=== PATIENT | male | born 1955 | race Caucasian/White ===

== ENCOUNTER 2016-12-04 16:12 | Emergency (ER) | payer OTHER ==
[~2016-12-04] VITALS: Ht 165.1 cm; Wt 64.0 kg
[~2016-12-04 16:12] MED LIST: ACET500C5 PO; D-ME473S18 PO; HYDR-3720 PO; IBUP800T25 PO; LEVO750T25 PO; METH-70 PO; OMEP40CA3 PO
[2016-12-04 16:25] VITALS: Ht 165.1 cm; Wt 64.0 kg
[2016-12-04] MEDS ORDERED: ACETAMINOPHEN 500 MG TAB PO STA (17:31)
--- NOTE | 2016-12-04 18:00 | RADRPT ---
PROCEDURE: Chest x-ray CLINICAL INDICATION: Cough TECHNIQUE: Chest single view COMPARISON: None FINDINGS: The heart is normal in size. The pulmonary vessels are normal in caliber. The lungs are clear. Th e costophrenic angles are sharp. The visualized bony thorax is unremarkable. IMPRESSION: No acute cardiopulmonary disease. RPTAT: HH .Rickey Roca MD, MD Date Time Electronically viewed and signed by .Rickey Roca MD, on 12/04/2016 18:00 .W/
[2016-12-04] MEDS ORDERED: OSLT75C PO (18:48)
[2016-12-04] MEDS ORDERED: ACET325T33 PO (18:48)
[2016-12-04 18:56] VITALS: BP 168/84; PULSE 72; RESP 20; TEMP 98.4
--- NOTE | 2016-12-04 19:24 | ERD ---
ER Documentation Chief Complaint Date/Time DATE: 12/04/16 TIME: 19:21 Chief Complaint HEADACHE , BODYACHE , FEVER , CHILLS , COUGH X 3 DAYS HPI 61-year-old male with a past medical history of diabetes presents the ED complaining of chills, frontal generalized headache, productive cough, body aches that started 3 days ago. Denies any sick contacts. States that his blood sugar today was 99. States that he has not taken any medications. Reports that he takes metformin and insulin. Denies any chest pain, shortness of breath, wheezing, abdominal pain, nausea, dyspnea on exertion, orthopnea, leg swelling, pleuritic chest pain, vomiting, diarrhea. Reports he has normal bowel movements. ROS All systems reviewed and are negative except as per history of present illness. Medications Home Meds Active Scripts Acetaminophen* (Tylenol*) 325 Mg Tablet, 1 TAB PO Q6 Y for PAIN AND OR ELEVATED TEMP, #20 TAB Prov:CHENTE WAY PA-C 12/04/16 Oseltamivir Phosphate* (Tamiflu*) 75 Mg Capsule, 75 MG PO BID for 5 Days, CAP Prov:CHENTE WAY PA-C 12/04/16 Acetaminophen* (Tylophen*) 500 Mg Capsule, 2 CAP PO Q8H Y for PAIN AND OR ELEVATED TEMP, #20 CAP Prov:TAYLOR MUSTAFA 10/21/16 Dextromethorphan Hb-Promethazine Hcl (Promethazine DM Syrup) 473 Ml Syrup, 10 ML PO Q6H Y for COUGH, #4 OZ Prov:TAYLOR MUSTAFA 10/21/16 Levofloxacin* (Levaquin*) 750 Mg Tablet, 750 MG PO DAILY for 5 Days, TAB Prov:TAYLOR MUSTAFA 10/21/16 Methocarbamol* (Robaxin*) 750 Mg Tablet, 750 MG PO TID, #14 TAB Prov:JOSH MORENO DO 06/05/16 Hydrocodone Bit-Acetaminophen* ([place]*) 7.5-325 Tablet, 1 TAB PO Q4H Y for PAIN , #20 TAB Prov:FLORI MORENOSTVIKS ARadha DO 06/05/16 Ibuprofen* (Motrin*) 800 Mg Tab, 800 MG PO Q6H Y for PAIN AND OR ELEVATED TEMP, #30 TAB Prov:JOSH MORENO DO 06/05/16 Omeprazole* (Prilosec*) 40 Mg Capsule.dr, 40 MG PO DAILY, #30 CAP Prov:JOSH MORENO DO 05/05/16 Allergies Allergies: Coded Allergies: No Known Drug Allergies (Verified Allergy, Unknown, 06/05/16) PMhx/Soc History of Surgery: Yes (Rt Femur ) Anesthesia Reaction: No Hx Neurological Disorder: No Hx Respiratory Disorders: No Hx Cardiac Disorders: No Hx Psychiatric Problems: No Hx Miscellaneous Medical Probl: Yes (DM) Hx Alcohol Use: No Hx Substance Use: No Hx Tobacco Use: No Physical Exam Vitals Vital Signs Date Time Temp Pulse Resp B/P Pulse Ox O2 Delivery O2 Flow Rate FiO2 12/04/16 18:56 98.4 72 20 168/84 99 Room Air 12/04/16 16:25 100.7 78 18 142/76 99 Physical Exam Const: [id number]-[id number], well-nourished. In no acute distress. Head: Atraumatic, normocephalic Eyes: Normal Conjunctiva without injection. No purulent discharge. PERRL. EOMI ENT: Normal external ear. Ear canal without erythema. Tympanic membrane pearly garcia without effusion or bulging. Nasal canal clear with normal turbinates. Moist oropharynx without tonsillar exudates. Non-erythematous pharynx. Uvula midline. No drooling. No trismus. Neck: Full range of motion. No meningismus. No cervical lymphadenopathy. Resp: Clear to auscultation bilaterally. No wheezing, rhonchi, rales, or crackles. No accessory muscle use. No retractions. Cardio: Regular rate and rhythm. No murmurs, rubs or gallops. Abd: Soft, non tender, non distended. Normal bowel sounds. No palpable masses. No rebound tenderness. No guarding. Skin: No petechiae or rashes Back: No midline tenderness. No CVA tenderness. Ext: No cyanosis, or edema. Neur: Awake and alert. Psych: Normal Mood and Affect Results 24 hrs Current Medications Medications (Trade) Dose Ordered Sig/Ben Route PRN Reason Start Time Stop Time Status Last Admin Dose Admin Acetaminophen (Tylenol Tab) 500 mg ONCE STAT PO 12/04/16 17:31 12/04/16 17:38 DC 12/04/16 18:09 Procedures/[facility] This is a 61-year-old male with a past medical history of diabetes presents the ED complaining of headache, body aches, fever, chills, productive cough. Patient currently has a low-grade fever 100.7. Tylenol was ordered to further downtrend patient's temperature. A chest x-ray was ordered to further evaluate patient. PROCEDURE: Chest x-ray CLINICAL INDICATION: Cough TECHNIQUE: Chest single view COMPARISON: None FINDINGS: The heart is normal in size. The pulmonary vessels are normal in caliber. The lungs are clear. The costophrenic angles are sharp. The visualized bony thorax is unremarkable. IMPRESSION: No acute cardiopulmonary disease. This patient presents to the ED with symptoms consistent with influenza like symptoms. Patient is afebrile and has normal vital signs. Patient's physical exam include lungs which were clear to auscultation and a normal pulse oximetry. There is a low suspicion for pneumonia, pneumothorax, pulmonary embolism, epiglottitis, otitis media, otitis externa, viral/strep pharyngitis, sinusitis, peritonsillar abscess, mastoiditis, retropharyngeal abscess, meningitis, sepsis, acute abdomen or other emergent conditions. Fluids, rest, and symptomatic treatment are recommended for the management of patient's symptoms. Since patient is diabetic, patient is appropriate candidate for Tamiflu. Discharge medications: Tamiflu, Tylenol Patient was instructed to return to the ED for any new or worsening symptoms. They should otherwise follow up with the primary care provider within 1-2 days. The patient's questions were answered at the time of discharge. Patient understood and agreed with discharge management. Departure Diagnosis: Primary Impression: Influenza-like symptoms Condition: Stable Patient Instructions: Influenza (Adult) Referrals: COMMUNITY CLINICS YOU HAVE RECEIVED A MEDICAL SCREENING EXAM AND THE RESULTS INDICATE THAT YOU DO NOT HAVE A CONDITION THAT REQUIRES URGENT TREATMENT IN THE EMERGENCY DEPARTMENT. FURTHER EVALUATION AND TREATMENT OF YOUR CONDITION CAN WAIT UNTIL YOU ARE SEEN IN YOUR DOCTORS OFFICE WITHIN THE NEXT 1-2 DAYS. IT IS YOUR RESPONSIBILITY TO MAKE AN APPOINTMENT FOR FOLOW-UP CARE. IF YOU HAVE A PRIMARY DOCTOR --you should call your primary doctor and schedule an appointment IF YOU DO NOT HAVE A PRIMARY DOCTOR YOU CAN CALL OUR PHYSICIAN REFERRAL HOTLINE AT IF YOU CAN NOT AFFORD TO SEE A PHYSICIAN YOU CAN CHOSE FROM THE FOLLOWING [facility] CLINICS [facility] [address] [place] [facility] [address] [place] [address] [facility] [address] [facility] [address] [facility] [address] [facility]. [address] [facility]. [facility] YOU HAVE RECEIVED A MEDICAL SCREENING EXAM AND THE RESULTS INDICATE THAT YOU DO NOT HAVE A CONDITION THAT REQUIRES URGENT TREATMENT IN THE EMERGENCY DEPARTMENT. FURTHER EVALUATION AND TREATMENT OF YOUR CONDITION CAN WAIT UNTIL YOU ARE SEEN IN YOUR DOCTORS OFFICE WITHIN THE NEXT 1-2 DAYS. IT IS YOUR RESPONSIBILITY TO MAKE AN APPOINTMENT FOR FOLOW-UP CARE. IF YOU HAVE A PRIMARY DOCTOR --you should call your primary doctor and schedule and appointment IF YOU DO NOT HAVE A PRIMARY DOCTOR YOU CAN CALL OUR PHYSICIAN REFERRAL HOTLINE AT . IF YOU CAN NOT AFFORD TO SEE A PHYSICIAN YOU CAN CHOSE FROM THE FOLLOWING PSYCHIATRIC HOSPITAL INSTITUTIONS: [facility] [address] [place] [address] [facility] [address] [place] [address] [facility] [address] [place] [address] [facility] URGENT CARE/SPECIALTIES Additional Instructions: Visite a jimenes winnie hunt para un EXAMEN.Regrese a estas instalaciones si no se mejora elia esperbamos o elia le garfieldmos. CHENTE WAY PA-C Dec 04, 2016 19:24
== END 2016-12-04 18:58 | disposition home or self-care (01) ==
LOC: FTE 16:12
DX: R51 Headache (principal); R05 Cough; R50.9 Fever, unspecified; E11.9 Type 2 diabetes mellitus without complications; Z79.4 Long term (current) use of insulin; Z79.84 Long term (current) use of oral hypoglycemic drugs
CPT/HCPCS: 71010; Z7502; Z7610

== ENCOUNTER 2017-01-12 19:29 | Emergency (ER) | payer OTHER ==
[~2017-01-12] VITALS: Ht 165.1 cm; Wt 63.3 kg
[~2017-01-12 19:29] MED LIST changes: +ACET325T33 PO; +OSLT75C PO
[2017-01-12 19:46] VITALS: Ht 165.1 cm; Wt 63.3 kg
[2017-01-12] MEDS ORDERED: CETI10CA PO (20:09)
[2017-01-12] MEDS ORDERED: POLY10DR19 BOTH EYES (20:09)
[2017-01-12] MEDS ORDERED: GUAI120S26 PO (20:09)
[2017-01-12] MEDS ORDERED: AZIT250T94 PO (20:09)
[2017-01-12] MEDS ORDERED: ACET500C5 PO (20:09)
[2017-01-12] MEDS ORDERED: GLIP5TAB13 PO (20:14)
--- NOTE | 2017-01-12 20:16 | ERD ---
ER Documentation Chief Complaint Date/Time DATE: 01/12/17 TIME: 20:13 Chief Complaint Eye drainge and cough for 5 days HPI 61-year-old male presents here in emergency department for complaints of cough for 5 days. Patient has been having dry cough, does not cough up any phlegm or blood. Patient does not have any shortness breath or wheezing. Patient has been having runny nose, nasal congestion with clear nasal discharge. Patient is having chills but does not have any fever. Patient denies any chest or palpitations. Patient denies any dizziness. Patient is also complaining of bilateral eye redness and discharge started this morning. Patient's complaining of itching both eyes. Patient denies any vision changes. Patient denies any trauma in the eye. Patient did not take any medications to help with symptoms. ROS All systems reviewed and are negative except as per history of present illness. Medications Home Meds Active Scripts Polymyxin B Sulfate-TMP* (Polymyxin B-TMP Eye Drops*) 10 Ml Drops, 1 DROP BOTH EYES QID for 7 Days, EA Prov:SEE HERNANDEZ NP 01/12/17 Acetaminophen* (Tylophen*) 500 Mg Capsule, 1 CAP PO Q6H Y for PAIN AND OR ELEVATED TEMP, #20 CAP Prov:SEE HERNANDEZ NP 01/12/17 Cetirizine Hcl* (Zyrtec*) 10 Mg Capsule, 10 MG PO DAILY, #30 TAB.CHEW Prov:SEE HERNANDEZ NP 01/12/17 Zadgartdbdd-P-Ijmfkbdmqs Hb* (Guaifenesin* DM Syrup) 120 Ml Syrup, 10 ML PO Q4H Y for COUGH, #120 ML Prov:SEE HERNANDEZ NP 01/12/17 Azithromycin* (Zithromax*) 250 Mg Tablet, 250 MG PO .AMADOU DIRECTED, #6 TAB TAKE 500 MG (2 TABS) THE FIRST DAY THEN 250 MG (1 TAB) DAYS 2-5 Prov:SEE HERNANDEZ NP 01/12/17 Acetaminophen* (Tylenol*) 325 Mg Tablet, 1 TAB PO Q6 Y for PAIN AND OR ELEVATED TEMP, #20 TAB Prov:CHENTE WAY PA-C 12/04/16 Oseltamivir Phosphate* (Tamiflu*) 75 Mg Capsule, 75 MG PO BID for 5 Days, CAP Prov:CHENTE WAY PA-C 12/04/16 Acetaminophen* (Tylophen*) 500 Mg Capsule, 2 CAP PO Q8H Y for PAIN AND OR ELEVATED TEMP, #20 CAP Prov:TAYLOR MUSTAFA C 10/21/16 Dextromethorphan Hb-Promethazine Hcl (Promethazine DM Syrup) 473 Ml Syrup, 10 ML PO Q6H Y for COUGH, #4 OZ Prov:TAYLOR MUSTAFA C 10/21/16 Levofloxacin* (Levaquin*) 750 Mg Tablet, 750 MG PO DAILY for 5 Days, TAB Prov:TAYLOR MUSTAFA C 10/21/16 Methocarbamol* (Robaxin*) 750 Mg Tablet, 750 MG PO TID, #14 TAB Prov:FLORI MORENOSTOLOS A. DO 06/05/16 Hydrocodone Bit-Acetaminophen* ([place]*) 7.5-325 Tablet, 1 TAB PO Q4H Y for PAIN , #20 TAB Prov:LECHIKIOSFLORISTOLOS A. DO 06/05/16 Ibuprofen* (Motrin*) 800 Mg Tab, 800 MG PO Q6H Y for PAIN AND OR ELEVATED TEMP, #30 TAB Prov:SABRINAOSFLORISTOLOS A. DO 06/05/16 Omeprazole* (Prilosec*) 40 Mg Capsule.dr, 40 MG PO DAILY, #30 CAP Prov:LEKKOSFLORISTOLOS A. DO 05/05/16 Reported Medications Glipizide* (Glipizide*) Unknown Strength Tablet, PO AC BREAKFAST, TAB 01/12/17 Allergies Allergies: Coded Allergies: No Known Drug Allergies (Verified Allergy, Unknown, 06/05/16) PMhx/Soc History of Surgery: Yes (Rt Femur ) Anesthesia Reaction: No Hx Neurological Disorder: No Hx Respiratory Disorders: No Hx Cardiac Disorders: No Hx Psychiatric Problems: No Hx Miscellaneous Medical Probl: Yes (DM) Hx Alcohol Use: No Hx Substance Use: No Hx Tobacco Use: No FmHx Family History: No coronary disease, No diabetes, No other Physical Exam Vitals Vital Signs Date Time Temp Pulse Resp B/P Pulse Ox O2 Delivery O2 Flow Rate FiO2 01/12/17 19:46 98.3 84 18 182/95 100 Physical Exam GENERAL: The patient is well developed and appropriate for usual state of health, in no apparent distress. HEENT: Atraumatic. Bilateral eye conjunctivae are noted to be erythematous with greenish discharge from both eyes, bilateral eyes are PERRL EOM intact. No tearing noted. No eyelid swelling noted. Ears: Normal tympanic membrane, no erythema or bulging. No ear canal swelling. No ear discharge. Nose: Erythematous nasal turbinates with clear nasal discharge. Throat: oropharynx erythematous with postnasal drip. No tonsillar swelling or tonsillar exudates. No lymphadenopathy. CHEST: Clear to auscultation bilaterally. There are no rales, wheezes or rhonchi. HEART: Regular rate and rhythm. No murmurs, clicks, rubs or gallops. No S3 or S4. ABDOMEN: Soft, nontender and nondistended. Good bowel sounds. No rebound or guarding. No gross peritonitis. No gross organomegaly or masses. No Qureshi sign or McBurney point tenderness. BACK: No midline or flank tenderness. EXTREMITIES: Equal pulses bilaterally. There is no peripheral clubbing, cyanosis or edema. No focal swelling or erythema. Full range of motion. Grossly neurovascularly intact. NEURO: Alert and oriented. Cranial nerves 2-12 intact. Motor strength in all 4 extremities with 5/5 strength. Sensation grossly intact. Normal speech and gait. SKIN: There is no apparent rash or petechia. The skin is warm and dry. HEMATOLOGIC AND LYMPHATIC: There is no evidence of excessive bruising or lymphedema. No gross cervical, axillary, or inguinal lymphadenopathy. Procedures/MDM Medical Decision Making: Patient symptoms are most likely consistent with acute bronchitis, can be viral, can be also possible atypical infection, considering patient is diabetic, high risk, patient will be treated with antibiotics, azithromycin. There is low suspicion for Pneumonia at this time since patients lungs sounds are clear, patient O2 saturation is normal and patient doesnt show any respiratory distress. Radiology exam is not indicated at this time. There is low suspicion for other cardiopulmonary emergencies at this time such as CHF, Pulmonary Embolism, Pneumothorax, Aortic Aneurysm or any other cardiopulmonary emergencies at this time. There is low suspicion for sepsis. Patient appears well and is hemodynamically stable. Patient does not have any fever. Patient's bilateral eye redness consistent with bacterial conjunctivitis, no suspicion for retinal detachment, Glaucoma, Patient Does Not Have Any Eye Pain, Did Not Have Any Trauma in the Eye, No Symptoms of Herpes Simplex Virus. Disposition: Home. Condition: Stable Prescriptions: Polytrim eyedrops, azithromycin, Zyrtec, guaifenesin DM, Tylenol Instructions: Patient is advised to take medications as prescribed. Patient is advised to rest. Patient advised to increase fluid intake, do humidifier at home and if possible, do salt water gargles. Patient is advised that if symptoms are worse, shortness of breath, uncontrolled fever, stridor, vomiting, worst signs and symptoms to return to emergency department immediately. Otherwise, patient is advised to follow up with primary doctor in 5-7 days. Departure Diagnosis: Primary Impression: Acute bacterial conjunctivitis of both eyes Additional Impression: Acute bronchitis Bronchitis organism: unspecified organism Qualified Code: J20.9 - Acute bronchitis, unspecified organism Condition: Stable Patient Instructions: Bronchitis, Antiobiotic Treatment (Adult), Conjunctivitis , Antibiotic [Child] SEE HERNANDEZ NP Jan 12, 2017 20:16
== END 2017-01-12 20:12 | disposition home or self-care (01) ==
LOC: E/R 19:29
DX: H10.33 Unspecified acute conjunctivitis, bilateral (principal); E11.9 Type 2 diabetes mellitus without complications; J20.9 Acute bronchitis, unspecified; Z79.84 Long term (current) use of oral hypoglycemic drugs
CPT/HCPCS: 99283

== ENCOUNTER 2017-07-13 08:00 | Emergency (ER) | payer OTHER ==
[~2017-07-13] VITALS: Ht 152.4 cm; Wt 64.5 kg
[~2017-07-13 08:00] MED LIST changes: +AZIT250T94 PO; +CETI10CA PO; +GLIP5TAB13 PO; +GUAI120S26 PO; -METH-70 PO; +METH750T93 PO; +POLY10DR19 BOTH EYES
[2017-07-13 08:06] VITALS: Ht 152.4 cm; Wt 64.5 kg
[2017-07-13] MEDS ORDERED: KETOROLAC 30 MG INJ IM STA (08:27)
[2017-07-13] MEDS ORDERED: HYDROCODONE/APAP (5/325) TAB PO ONE (08:30)
--- NOTE | 2017-07-13 08:38 | ERD ---
ER Documentation Chief Complaint Date/Time DATE: 07/13/17 TIME: 08:33 Chief Complaint Complains of back pain x 3 days HPI Patient is a 61-year-old male who presents with left-sided lower back pain as well as left foot pain that he has had since last night. He denies any trauma. He states the pain in his foot hurts more than his back and that is what brought him in to the emergency room today as he was unable to sleep last night secondary to the pain. He denies any trauma. Denies any numbness or tingling. He has not taken any medication for pain. He is ambulatory. He denies any fever. Denies any nausea or vomiting or diarrhea. Denies any chest pain or shortness of breath. Denies any abdominal pain. Denies any bowel or bladder incontinence. Denies any dysuria hematuria or increased urinary frequency. ROS All systems reviewed and are negative except as per history of present illness. Medications Home Meds Active Scripts Hydrocodone/Acetaminophen (Evans 5-325 Tablet) 1 Each Tablet, 1 TAB PO Q6H Y for PAIN, #15 TAB Prov:GRETA CHARLES PA-C 07/13/17 Ibuprofen* (Motrin*) 600 Mg Tab, 600 MG PO Q6, #30 TAB Prov:GRETA CHARLES PA-C 07/13/17 Polymyxin B Sulfate-TMP* (Polymyxin B-TMP Eye Drops*) 10 Ml Drops, 1 DROP BOTH EYES QID for 7 Days, EA Prov:SEE HERNANDEZ NP 01/12/17 Acetaminophen* (Tylophen*) 500 Mg Capsule, 1 CAP PO Q6H Y for PAIN AND OR ELEVATED TEMP, #20 CAP Prov:SEE HERNANDEZ NP 01/12/17 Cetirizine Hcl* (Zyrtec*) 10 Mg Capsule, 10 MG PO DAILY, #30 TAB.CHEW Prov:SEE HERNANDEZ NP 01/12/17 Rbcxqhklaqw-S-Uvpevaphud Hb* (Guaifenesin* DM Syrup) 120 Ml Syrup, 10 ML PO Q4H Y for COUGH, #120 ML Prov:SEE HERNANDEZ NP 01/12/17 Azithromycin* (Zithromax*) 250 Mg Tablet, 250 MG PO .ZPACK DIRECTED, #6 TAB TAKE 500 MG (2 TABS) THE FIRST DAY THEN 250 MG (1 TAB) DAYS 2-5 Prov:SEE HERNANDEZ NP 01/12/17 Acetaminophen* (Tylenol*) 325 Mg Tablet, 1 TAB PO Q6 Y for PAIN AND OR ELEVATED TEMP, #20 TAB Prov:CHENTE WAY PA-C 12/04/16 Oseltamivir Phosphate* (Tamiflu*) 75 Mg Capsule, 75 MG PO BID for 5 Days, CAP Prov:CHENTE WAY PA-C 12/04/16 Acetaminophen* (Tylophen*) 500 Mg Capsule, 2 CAP PO Q8H Y for PAIN AND OR ELEVATED TEMP, #20 CAP Prov:TAYLOR MUSTAFA 10/21/16 Dextromethorphan Hb-Promethazine Hcl (Promethazine DM Syrup) 473 Ml Syrup, 10 ML PO Q6H Y for COUGH, #4 OZ Prov:TAYLOR MUSTAFA 10/21/16 Levofloxacin* (Levaquin*) 750 Mg Tablet, 750 MG PO DAILY for 5 Days, TAB Prov:TAYLOR MUSTAFA 10/21/16 Methocarbamol* (Robaxin*) 750 Mg Tablet, 750 MG PO TID, #14 TAB Prov:JOSH MORENO DO 06/05/16 Hydrocodone Bit-Acetaminophen* (Evans*) 7.5-325 Tablet, 1 TAB PO Q4H Y for PAIN , #20 TAB Prov:FLORI MORENOSTBUSHRA Bob DO 06/05/16 Ibuprofen* (Motrin*) 800 Mg Tab, 800 MG PO Q6H Y for PAIN AND OR ELEVATED TEMP, #30 TAB Prov:FLORI MORENOSTVIKS Lisbeth DO 06/05/16 Omeprazole* (Prilosec*) 40 Mg Capsule.dr, 40 MG PO DAILY, #30 CAP Prov:FLORI MORENOSTVIKS Lisbeth DO 05/05/16 Reported Medications Glipizide* (Glipizide*) Unknown Strength Tablet, PO AC BREAKFAST, TAB 01/12/17 Allergies Allergies: Coded Allergies: No Known Drug Allergies (Verified Allergy, Unknown, 07/13/17) PMhx/Soc History of Surgery: Yes (Rt Femur ) Anesthesia Reaction: No Hx Neurological Disorder: No Hx Respiratory Disorders: No Hx Cardiac Disorders: No Hx Psychiatric Problems: No Hx Miscellaneous Medical Probl: Yes (DM) Hx Alcohol Use: No Hx Substance Use: No Hx Tobacco Use: No Smoking Status: Never smoker FmHx Family History: diabetes Physical Exam Vitals Vital Signs Date Time Temp Pulse Resp B/P Pulse Ox O2 Delivery O2 Flow Rate FiO2 07/13/17 08:06 98.5 80 20 170/80 100 Physical Exam INITIAL VITAL SIGNS: Reviewed by me GENERAL: Awake, alert and oriented x 4, well appearing, nontoxic, speaking in full sentences. No acute distress HEAD: Atraumatic EYES: EOMI. PERRL. NECK: Supple. No masses. Full range of motion. No meningismus. No midline tenderness. RESPIRATORY: Clear to auscultation bilaterally. Symmetric chest wall rise. No wheezing or rales. No accessory muscle use. CV: Regular rate and rhythm. No murmurs, rubs, or gallops. ABDOMEN: Soft, non-distended. Nontender. Negative [place]. Negative McBurneys point tenderness. No CVA tenderness bilaterally. No guarding. No rebound. EXTREMITIES: No clubbing or cyanosis. No edema. Moving all extremities normally. Left foot: No erythema, no edema, sensation to light touch intact, capillary refill less than 2 seconds, no bony abnormalities, pedal pulse 2+ BACK: No midline tenderness to palpation. No step-offs. SKIN: Warm and dry. No rash or petechiae. NEUROLOGIC: Normal mental status and speech. Face is symmetric. Moves all extremities equally. Motor and sensory distally intact. Normal coordination. Ambulates with a strong steady gait. Results 24 hrs Current Medications Medications (Trade) Dose Ordered Sig/Ben Route PRN Reason Start Time Stop Time Status Last Admin Dose Admin Ketorolac Tromethamine (Toradol) 30 mg ONCE STAT IM 07/13/17 08:27 07/13/17 08:28 DC 07/13/17 08:35 Acetaminophen/ Hydrocodone Bitart (Evans (5/325)) 1 tab ONCE ONCE PO 07/13/17 08:30 07/13/17 08:31 DC 07/13/17 08:36 Procedures/MDM 61-year-old male presents with foot and back pain. He is ambulatory neurovascular intact. There is no trauma. No evidence of infection or cellulitis. Exam is normal. This could be early gout versus musculoskeletal. The differential diagnosis includes but is not limited to muscle strain, ligament strain, contusion, arthritis, discogenetic disease, non-musculoskeletal , cauda equina syndrome, cord compression, abscess and others. He has not tried any medications for his symptoms at home, so conservative treatment with antiinflamatorries and pain meds will be initiated first with recommeendation of close primary care follow up. He was given Toradol and Evans here in the emergency room and discharged with Motrin with small amount of Evans. Patient counseled regarding my diagnostic impression and care plan. Prior to discharge all questions answered. Pt agrees with treatment plan and understands strict return precautions. Pt is instructed to follow up with primary care provider within 24-48 hours. Precautionary instructions provided including instructions to return to the ER if not improving or for any worsening or changing symptoms or concerns. Departure Diagnosis: Primary Impression: Back pain Additional Impression: Foot pain Condition: Stable GRETA CHARLES PA-C Jul 13, 2017 08:38
[2017-07-13] MEDS ORDERED: IBUP-1542 PO (08:39)
[2017-07-13] MEDS ORDERED: HYDR-906 PO (08:39)
== END 2017-07-13 08:55 | disposition home or self-care (01) ==
LOC: FTE 08:00
DX: M54.5 Low back pain (principal); M79.672 Pain in left foot; E11.9 Type 2 diabetes mellitus without complications; Z79.84 Long term (current) use of oral hypoglycemic drugs
CPT/HCPCS: 96372; J1885; Z7502; Z7610

== ENCOUNTER 2018-12-13 18:13 | Emergency (ER) | payer OTHER ==
[~2018-12-13] VITALS: Ht 157.5 cm; Wt 70.7 kg
[~2018-12-13 18:13] MED LIST changes: +AZIT250T PO; -AZIT250T94 PO; +HYDR-4011 PO; +IBUP-1542 PO; -IBUP800T25 PO; +IBUP800T48 PO; +OSEL75CA23 PO; -OSLT75C PO
[2018-12-13 18:23] VITALS: Ht 157.5 cm; Wt 70.7 kg
--- NOTE | 2018-12-13 19:08 | ERD ---
ER Documentation Chief Complaint Chief Complaint on/off foot/leg pain and swelling; able to ambulate w/o difficulty HPI 63-year-old male with history of hypertension, presents the emergency department, complaining of 2 days with bilateral lower extremity nontender edema, erythema and warmth. The patient denies chest pain, no shortness of breath, no palpitations, no history of CHF. The patient also denies fevers, no chills. No medications taken at this time. ROS All systems reviewed and are negative except as per history of present illness. Medications Home Meds Active Scripts Cephalexin* (Keflex*) 500 Mg Capsule, 500 MG PO QID for 7 Days, CAP Prov:ZAIDA AGUILAR MD 12/13/18 Prednisone* (Prednisone*) 20 Mg Tab, 40 MG PO DAILY for 4 Days, TAB Prov:ZAIDA AGUILAR MD 12/13/18 Hydrocodone/Acetaminophen ([place] 5-325 Tablet) 1 Each Tablet, 1 TAB PO Q6H PRN for PAIN, #15 TAB Prov:GRETA CHARLES PA-C 07/13/17 Ibuprofen* (Motrin*) 600 Mg Tab, 600 MG PO Q6, #30 TAB Prov:GRETA CHARLES PA-C 07/13/17 Polymyxin B Sulfate-TMP* (Polymyxin B-TMP Eye Drops*) 10 Ml Drops, 1 DROP BOTH EYES QID for 7 Days, EA Prov:SEE HERNANDEZ NP 01/12/17 Acetaminophen* (Tylophen*) 500 Mg Capsule, 1 CAP PO Q6H PRN for PAIN AND OR ELEVATED TEMP, #20 CAP Prov:SEE HERNANDEZ NP 01/12/17 Cetirizine Hcl* (Zyrtec*) 10 Mg Capsule, 10 MG PO DAILY, #30 TAB.CHEW Prov:SEE HERNANDEZ NP 01/12/17 Iglyfqcnzzk-P-Spudygbixl Hb* (Guaifenesin* DM Syrup) 120 Ml Syrup, 10 ML PO Q4H PRN for COUGH, #120 ML Prov:SEE HERNANDEZ NP 01/12/17 Azithromycin* (Zithromax*) 250 Mg Tablet, 250 MG PO .RegisPACK DIRECTED, #6 TAB TAKE 500 MG (2 TABS) THE FIRST DAY THEN 250 MG (1 TAB) DAYS 2-5 Prov:SEE HERNANDEZ NP 01/12/17 Acetaminophen* (Tylenol*) 325 Mg Tablet, 1 TAB PO Q6 PRN for PAIN AND OR ELEVATED TEMP, #20 TAB Prov:CHENTE WAY PA-C 12/04/16 Oseltamivir Phosphate* (Tamiflu*) 75 Mg Capsule, 75 MG PO BID for 5 Days, CAP Prov:CHENTE WAY PA-C 12/04/16 Acetaminophen* (Tylophen*) 500 Mg Capsule, 2 CAP PO Q8H PRN for PAIN AND OR ELEVATED TEMP, #20 CAP Prov:TAYLOR MUSTAFA 10/21/16 Dextromethorphan Hb-Promethazine Hcl (Promethazine DM Syrup) 473 Ml Syrup, 10 ML PO Q6H PRN for COUGH, #4 OZ Prov:TAYLOR MUSTAFA 10/21/16 Levofloxacin* (Levaquin*) 750 Mg Tablet, 750 MG PO DAILY for 5 Days, TAB Prov:TAYLOR MUSTAFA 10/21/16 Methocarbamol* (Robaxin*) 750 Mg Tablet, 750 MG PO TID, #14 TAB Prov:FLORI MORENOSTBUSHRA Bob DO 06/05/16 Hydrocodone Bit-Acetaminophen* ([place]*) 7.5-325 Tablet, 1 TAB PO Q4H PRN for PAIN, #20 TAB Prov:FLORI MORENOSTVIKS ARadha DO 06/05/16 Ibuprofen* (Motrin*) 800 Mg Tab, 800 MG PO Q6H PRN for PAIN AND OR ELEVATED TEMP, #30 TAB Prov:FLORI MORENOSTOLOS A. DO 06/05/16 Omeprazole* (Prilosec*) 40 Mg Capsule.dr, 40 MG PO DAILY, #30 CAP Prov:FLORI MORENOSTOLOS ARadha DO 05/05/16 Reported Medications Glipizide* (Glipizide*) Unknown Strength Tablet, PO AC BREAKFAST, TAB 01/12/17 Allergies Allergies: Coded Allergies: No Known Drug Allergies (Verified Allergy, Unknown, 12/13/18) PMhx/Soc History of Surgery: Yes (Rt Femur ) Anesthesia Reaction: No Hx Neurological Disorder: No Hx Respiratory Disorders: No Hx Cardiac Disorders: No Hx Psychiatric Problems: No Hx Miscellaneous Medical Probl: Yes (DM) Hx Alcohol Use: No Hx Substance Use: No Hx Tobacco Use: No FmHx Family History: diabetes Physical Exam Vitals Vital Signs Date Temp Pulse Resp B/P (MAP) Pulse Ox O2 O2 Flow FiO2 Time Delivery Rate 12/13/18 97.3 80 19 132/62 98 18:23 (85) Physical Exam Const: No acute distress Head: Atraumatic Eyes: Normal Conjunctiva ENT: Normal External Ears, Nose and Mouth. Neck: Full range of motion. No meningismus. Resp: Clear to auscultation bilaterally Cardio: Regular rate and rhythm, no murmurs Abd: Soft, non tender, non distended. Normal bowel sounds Skin: No petechiae or rashes Back: No midline or flank tenderness Ext: Bilateral lower extremities with nonpitting edema below the knee, with erythema and warmth to palpation. 2+Bilateral pedal pulses. Distal neurovascular exam intact. Bilateral severe onychomycosis. Neur: Awake and alert Psych: Normal Mood and Affect Results 24 hrs DIAGNOSTIC IMAGING REPORT Patient: LALIT GRAHAM : 1955 Age: 63 Sex: M MR #: [id number] DOS: 12/13/181910 Ordering MD: ZAIDA AGUILAR MD Location: [facility] Room/Bed: PROCEDURE: Ultrasound examination of bilateral lower extremities veins with Doppler. CLINICAL INDICATION: Leg pain and swelling. TECHNIQUE: Multiple sonographic images of bilateral lower extremity venous systems were performed with garcia scale and color Doppler. COMPARISON: None. FINDINGS: Bilateral common femoral, superficial femoral and popliteal veins demonstrate normal color flow, waveforms, compression and response to augmentation. There is no evidence of deep venous thrombosis. IMPRESSION: No evidence of deep venous thrombosis within bilateral lower extremities. .Jonathan Avina MD, Date Time Electronically viewed and signed by .Jonathan Avina MD, on 12/13/2018 20:28 .T/ CC: ZAIDA AGUILAR MD [phone] Procedures/MDM Acute bilateral leg edema, vital signs stable.Differential diagnosis include but not limited to: Musculoskeletal injury, arthritis, cellulitis, lymphangitis, DVT; low suspicion for acute limb ischemia, septic arthritis, necrotizing fasciitis, compartment syndrome. Neurovascular exam grossly intact. no clinical findings suggestive of acute systemic infectious process, no acute deformity. Pertinent Data: Bilateral venous Doppler: negative for DVT. Physical examination and clinical presentation consistent most likely with venous stasis with mild lymphangitis. Results and clinical impression discussed with the patient who agrees with management. The patient is stable to be treated outpatient and will be discharged home with recommendations for steroids, cephalexin, rest, elevation and close monitoring. The patient was instructed to follow up with the primary care provider in the next 48h. If symptoms persist, worsen or new symptoms develop, then patient should return to the ED immediately. Instructions explained and given to patient with acknowledgment and demonstrated understanding. Disclaimer: Inadvertent spelling and grammatical errors are likely due to EHR/dictation software use and do not reflect on the overall quality of patient care. Also, please note that the electronic time recorded on this note does not necessarily reflect the actual time of the patient encounter. Departure Diagnosis: Primary Impression: Stasis dermatitis of both legs Condition: Stable Additional Instructions: Muchas melissa por [facility] para jimenes servicio. Esperamos que en jimenes visita a la eugenie de emergencia jimenes problema medico haya sido solucionado y que se sienta mucho mejor. Para estar seguros que jimenes mejoria sigue en proceso, le pedimos el favor de hacer baltazar rodri de seguimiento medico con jimenes doctor primario en los proximos 2-4 gauthier. Lleve con usted estos documentos y las medicinas recetadas. Si selam sintomas empeoran, NO SE ESPERE, por favor regrese a eugenie de emergencia INMEDIATAMENTE. En darío que usted no tenga un mdico de atencin primaria: Llame al mdico o clnica comunitaria de referencia que aparece abajo javier las horas de consultorio para hacer baltazar rodri para que le vean. CLINICAS: [facility] [phone] [facility] [phone] [facility] [phone] [facility] [phone] [place] [phone] [facility]. [phone] ZAIDA OROZCO MD Dec 13, 2018 19:08
[2018-12-13] MEDS ORDERED: CEPH-443 PO (20:19)
[2018-12-13] MEDS ORDERED: PRED20TA PO (20:19)
[2018-12-13 20:42] VITALS: BP 161/73; PULSE 71; RESP 16
== END 2018-12-13 20:43 | disposition home or self-care (01) ==
LOC: FTE 18:13
DX: I87.2 Venous insufficiency (chronic) (peripheral) (principal); I10 Essential (primary) hypertension; E11.9 Type 2 diabetes mellitus without complications
CPT/HCPCS: 93970; Z7502

== ENCOUNTER 2019-01-23 14:45 | Emergency (ER) | payer OTHER ==
[~2019-01-23] VITALS: Ht 157.5 cm; Wt 67.9 kg
[~2019-01-23 14:45] MED LIST changes: +CEPH-443 PO; +PRED20TA PO
[2019-01-23 14:56] VITALS: Ht 157.5 cm; Wt 67.9 kg
--- NOTE | 2019-01-23 17:45 | ERD ---
ER Documentation Chief Complaint Chief Complaint BILAT LEG PAIN X 20 DAYS +1 EDEMA. NO RESPIRATORY DISTRESS HPI This is a 63-year-old male with a past medical history of hypertension, diabetes who is presenting with 1-2 months of persistent bilateral lower extremity edema with mild discoloration of his skin. The patient's symptoms have been ongoing since November. He was evaluated on December 13, 2018 in the emergency department where he had a negative Doppler study performed of the legs bilaterally. He is ultimately discharged in stable condition with a diagnosis of stasis dermatitis. The patient reports that his symptoms have been unchanged since then. The patient's primary concern is that his swelling could be coming from a kidney or heart issue. That said, he does not endorse any cardiac symptoms. He denies any chest pain or chest tightness. He has no shortness of breath. He is not dyspneic on exertion. He does not have worsening fatigue. He has not had episodes of diaphoresis. He does not endorse lightheadedness or dizziness. He denies any nausea or vomiting. He does not endorse any renal issues. He has no abdominal or flank pain. He has been urinating normally. The patient denies feeling sick recently. The patient denies fever or chills. The patient has had no headache or vision changes. The patient does not endorse neck or back pain. The patient denies lightheadedness or dizziness. The patient denies changes to bowel movements. The patient has had no focal deficits. The patient has had no weakness or numbness or tingling to the face or extremities. ROS All systems reviewed and are negative except as per history of present illness. Medications Home Meds Reported Medications Omeprazole* (Omeprazole*) 40 Mg Capsule.dr, 40 MG PO AC BREAKFAST BEDTIME, #30 CAP 01/23/19 Insulin Glargine,Hum.rec.anlog (Basaglar Kwikpen U-100) 100 Unit/1 Ml Insuln.pen, 25 UNITS SC DAILY, EA 01/23/19 Amlodipine Besylate* (Norvasc*) 5 Mg Tablet, 5 MG PO DAILY, TAB 01/23/19 Magnesium Oxide* (Mag-Oxide*) 400 Mg Tablet, 250 MG PO DAILY, TAB 01/23/19 Hydrochlorothiazide* (Hydrochlorothiazide*) 12.5 Mg Tablet, 12.5 MG PO DAILY, #30 TAB 01/23/19 Gabapentin* (Gabapentin*) 300 Mg Capsule, 300 MG PO QHS, #60 CAP 01/23/19 Lisinopril* (Lisinopril*) 40 Mg Tablet, 40 MG PO DAILY, #30 TAB 01/23/19 Insulin Glargine* (Lantus*) 100 Unit/Ml Soln, 30 UNIT SC QPM, #1 VIAL 01/23/19 Metformin* (Glucophage*) 1,000 Mg Tablet, 1000 MG PO BID, #60 TAB 01/23/19 Discontinued Reported Medications Glipizide* (Glipizide*) Unknown Strength Tablet, PO AC BREAKFAST, TAB 01/12/17 Discontinued Scripts Cephalexin* (Keflex*) 500 Mg Capsule, 500 MG PO QID for 7 Days, CAP Prov:ZAIDA AGUILAR MD 12/13/18 Prednisone* (Prednisone*) 20 Mg Tab, 40 MG PO DAILY for 4 Days, TAB Prov:ZAIDA AGUILAR MD 12/13/18 Hydrocodone/Acetaminophen ([place] 5-325 Tablet) 1 Each Tablet, 1 TAB PO Q6H PRN for PAIN, #15 TAB Prov:GRETA CHARLES PA-C 07/13/17 Ibuprofen* (Motrin*) 600 Mg Tab, 600 MG PO Q6, #30 TAB Prov:GRETA CHARLES PA-C 07/13/17 Polymyxin B Sulfate-TMP* (Polymyxin B-TMP Eye Drops*) 10 Ml Drops, 1 DROP BOTH EYES QID for 7 Days, EA Prov:SEE HERNANDEZ NP 01/12/17 Acetaminophen* (Tylophen*) 500 Mg Capsule, 1 CAP PO Q6H PRN for PAIN AND OR ELEVATED TEMP, #20 CAP Prov:SEE HERNANDEZ [employer] COMM[employer]ICATIONS MECHANICIAN 01/12/17 Cetirizine Hcl* (Zyrtec*) 10 Mg Capsule, 10 MG PO DAILY, #30 TAB.CHEW Prov:SEE HERNANDEZ NP 01/12/17 Tsgkzmqjfbz-C-Mdfslcfaky Hb* (Guaifenesin* DM Syrup) 120 Ml Syrup, 10 ML PO Q4H PRN for COUGH, #120 ML Prov:SEE HERNANDEZ NP 01/12/17 Azithromycin* (Zithromax*) 250 Mg Tablet, 250 MG PO .AMADOU DIRECTED, #6 TAB TAKE 500 MG (2 TABS) THE FIRST DAY THEN 250 MG (1 TAB) DAYS 2-5 Prov:SEE HERNANDEZ NP 01/12/17 Acetaminophen* (Tylenol*) 325 Mg Tablet, 1 TAB PO Q6 PRN for PAIN AND OR ELEVATED TEMP, #20 TAB Prov:CHENTE WAY PA-C 12/04/16 Oseltamivir Phosphate* (Tamiflu*) 75 Mg Capsule, 75 MG PO BID for 5 Days, CAP Prov:CHENTE WAY PA-C 12/04/16 Acetaminophen* (Tylophen*) 500 Mg Capsule, 2 CAP PO Q8H PRN for PAIN AND OR ELEVATED TEMP, #20 CAP Prov:TAYLOR MUSTAFA 10/21/16 Dextromethorphan Hb-Promethazine Hcl (Promethazine DM Syrup) 473 Ml Syrup, 10 ML PO Q6H PRN for COUGH, #4 OZ Prov:TAYLOR MUSTAFA 10/21/16 Levofloxacin* (Levaquin*) 750 Mg Tablet, 750 MG PO DAILY for 5 Days, TAB Prov:TAYLOR MUSTAFA 10/21/16 Methocarbamol* (Robaxin*) 750 Mg Tablet, 750 MG PO TID, #14 TAB Prov:JOSH MORENO DO 06/05/16 Hydrocodone Bit-Acetaminophen* ([place]*) 7.5-325 Tablet, 1 TAB PO Q4H PRN for PAIN, #20 TAB Prov:JOSH MORENO DO 06/05/16 Ibuprofen* (Motrin*) 800 Mg Tab, 800 MG PO Q6H PRN for PAIN AND OR ELEVATED TEMP, #30 TAB Prov:FLORI MORENOSTBUSHRA Bob DO 06/05/16 Omeprazole* (Prilosec*) 40 Mg Capsule.dr, 40 MG PO DAILY, #30 CAP Prov:FLORI MORENOSTOLOS ARadha DO 05/05/16 Allergies Allergies: Coded Allergies: No Known Drug Allergies (Verified Allergy, Unknown, 12/13/18) PMhx/Soc History of Surgery: Yes (Rt Femur ) Anesthesia Reaction: No Hx Neurological Disorder: No Hx Respiratory Disorders: No Hx Cardiac Disorders: Yes (htn, ) Hx Psychiatric Problems: No Hx Miscellaneous Medical Probl: Yes (DM) Hx Alcohol Use: No Hx Substance Use: No Hx Tobacco Use: No FmHx Family History: diabetes Physical Exam Vitals Vital Signs Date Temp Pulse Resp B/P (MAP) Pulse Ox O2 O2 Flow FiO2 Time Delivery Rate 01/23/19 97.9 84 17 202/84 98 14:56 (123) Physical Exam Const: No apparent distress, well-developed, well-nourished Head: Normocephalic, Atraumatic Eyes: Normal Conjunctiva. Extraocular movements intact. Pupils equal, round and reactive to light ENT: Normal External Ears, Nose and Mouth. Neck: Full range of motion. No meningismus. Resp: Clear to auscultation bilaterally, No wheezes, rales or rhonchi Cardio: Regular rate and rhythm. No murmurs, rubs or gallops Abd: Soft, non tender, non distended. Normal bowel sounds Skin: No petechiae or rashes Back: No midline tenderness. No CVA tenderness Ext: No cyanosis. Mild bilateral 1+ pitting edema with chronic inflammatory skin changes. Neur: Awake and alert, oriented 4. Cranial nerves intact. No facial droop. Normal strength, sensation and coordination. Psych: Normal Mood and Affect Result Diagram: 01/23/19 1740 01/23/19 1740 Results 24 hrs Laboratory Tests Test 01/23/19 17:40 White Blood Count 6.8 10^3/ul Red Blood Count 4.55 10^6/ul Hemoglobin 12.7 g/dl Hematocrit 38.1 % Mean Corpuscular Volume 83.7 fl Mean Corpuscular Hemoglobin 27.9 pg Mean Corpuscular Hemoglobin Concent 33.3 g/dl Red Cell Distribution Width 12.3 % Platelet Count 242 10^3/UL Mean Platelet Volume 8.7 fl Immature Granulocytes % 0.300 % Neutrophils % % Lymphocytes % % Monocytes % % Eosinophils % % Basophils % % Nucleated Red Blood Cells % 0.0 /100WBC Immature Granulocytes # 0.020 10^3/ul Neutrophils # 10^3/ul Lymphocytes # 10^3/ul Monocytes # 10^3/ul Eosinophils # 10^3/ul Basophils # 10^3/ul Nucleated Red Blood Cells # 10^3/ul Sodium Level 137 mmol/L Potassium Level 3.9 mmol/L Chloride Level 98 mmol/L Carbon Dioxide Level 31 mmol/L Anion Gap 8 Blood Urea Nitrogen 37 mg/dl Creatinine 0.95 mg/dl Est Glomerular Filtrat Rate mL/min > 60 mL/min Glucose Level 214 mg/dl Calcium Level 9.6 mg/dl Troponin I < 0.012 ng/ml B-Type Natriuretic Peptide 66 PG/ML Procedures/MDM MDM The patient's presentation warrants further investigation. Previous medical records, if available, were reviewed. LABS The patient's laboratory testing was obtained and reviewed. No emergent treatment was required unless described below. CBC: No E/o of systemic infection or severe anemia or thrombocytopenia. Mild normocytic anemia, nonemergent. Chemistry: No E/o severe acidosis or alkalosis or renal failure or diabetic ketoacidosis Troponin: No E/o acute ischemia BNP: No E/o heart failure EKG EKG read by me: Rate/Rhythm: Regular rate and rhythm at a rate of 73 bpm. Intervals: Normal [place]: Normal Impression: No evidence of acute ischemia or arrhythmia IMAGING Imaging and Radiology interpretation reviewed. CXR FINDINGS: Cardiomediastinal silhouette is normal. There is no pneumothorax or pleural effusion. There is no focal pulmonic consolidation. There are degenerative changes of bilateral glenohumeral joints. IMPRESSION: No acute pulmonary abnormality. Electronically viewed and signed by Physician Bogdan on 01/23/2019 17:50 Doppler bilateral lower extremity COMPARISON: 12/13/2018. FINDINGS: Bilateral common femoral, superficial femoral and popliteal veins demonstrate normal color flow, waveforms, compression and response to augmentation. There is no evidence of deep venous thrombosis. IMPRESSION: No evidence of deep venous thrombosis within bilateral lower extremities. Electronically viewed and signed by .Jonathan Avina MD, on 01/23/2019 18:23 TREATMENT/DISPOSITION The patient presents with bilateral lower extremity and chronic skin changes, consistent with stasis dermatitis as diagnosed by the previous provider during his last emergency department visit on December 13, 2018. Venous insufficiency is certainly a possible etiology. I have low suspicion for cellulitis or other soft tissue infection. I do not see evidence of DVT. This is now the second DVT study that he has had for this this year. The patient's symptoms are not consistent with heart failure. They are not consistent with renal disease. The patient will be provided education on venous insufficiency. The patient should follow-up with his primary care doctor to address this further. No emergent diagnoses were identified. At this time, I feel that the patient stable for discharge. The patient was instructed to follow-up with a primary care physician in 1-3 days. The patient will be given strict precautions with which to return to the emergency department. Prescriptions: None The patient's blood pressure was elevated at greater than 120/80 while in the emergency department. The patient was otherwise stable with no evidence of hypertensive urgency or emergency. The patient does not require admission for blood pressure control. I have discussed with the patient the risks of hypertension. I have instructed the patient to return to the ER for any new or worsening symptoms including chest pain, shortness of breath, headache, blurred vision, confusion, nausea, vomiting or LOC. I have advised the patient to follow up with the primary care physician for outpatient monitoring and treatment for hypertension in 1-3 days. Disclaimer: Inadvertent spelling and grammatical errors are likely due to EHR/dictation software use and do not reflect on the overall quality of patient care. Note that the electronic time recorded on this note does not necessarily reflect the actual time of the patient encounter. Departure Diagnosis: Primary Impression: Stasis dermatitis of both legs Additional Impressions: Bilateral lower extremity edema Normocytic anemia Condition: Stable JACKIE RAMESH MD Jan 23, 2019 17:45
[2019-01-23] MEDS ORDERED: GABA300C16 PO (17:46)
[2019-01-23] MEDS ORDERED: LANT3I SC (17:46)
[2019-01-23] MEDS ORDERED: MTF1000T PO (17:46)
[2019-01-23] MEDS ORDERED: LISI40TA3 PO (17:46)
[2019-01-23] MEDS ORDERED: MAGN400T27 PO (17:47)
[2019-01-23] MEDS ORDERED: AMLO5TAB4 PO (17:47)
[2019-01-23] MEDS ORDERED: HYDR12.58 PO (17:47)
[2019-01-23] MEDS ORDERED: INSU100I33 SC (17:47)
[2019-01-23] MEDS ORDERED: OMEP40CA6 PO (17:48)
[2019-01-23 20:48] VITALS: BP 179/90; PULSE 77; RESP 17
== END 2019-01-23 20:45 | disposition home or self-care (01) ==
LOC: E/R 14:45
DX: I87.2 Venous insufficiency (chronic) (peripheral) (principal); I10 Essential (primary) hypertension; E11.9 Type 2 diabetes mellitus without complications; D64.9 Anemia, unspecified; Z79.4 Long term (current) use of insulin
CPT/HCPCS: 36415; 71045; 80048; 83880; 84484; 85025; 93005; 93970; Z7502

== ENCOUNTER 2019-03-03 14:26 | Emergency (ER) | payer OTHER ==
[~2019-03-03] VITALS: Ht 165.1 cm; Wt 63.0 kg
[~2019-03-03 14:26] MED LIST changes: -ACET325T33 PO; -ACET500C5 PO; +AMLO5TAB4 PO; -AZIT250T PO; -CEPH-443 PO; -CETI10CA PO; -D-ME473S18 PO; +GABA300C16 PO; -GLIP5TAB13 PO; -GUAI120S26 PO; -HYDR-3720 PO; -HYDR-4011 PO; +HYDR12.58 PO; -IBUP-1542 PO; -IBUP800T48 PO; +INSU100I33 SC; +LANT3I SC; -LEVO750T25 PO; +LISI40TA3 PO; +MAGN400T27 PO; -METH750T93 PO; +MTF1000T PO; -OMEP40CA3 PO; +OMEP40CA6 PO; -OSEL75CA23 PO; -POLY10DR19 BOTH EYES; -PRED20TA PO
[2019-03-03 14:38] VITALS: Ht 165.1 cm; Wt 63.0 kg
--- NOTE | 2019-03-03 19:45 | ERD ---
ER Documentation Chief Complaint Chief Complaint diabetic foot HPI 63-year-old male with a history of diabetes presenting with concerns of infection of his right foot pinky toe. He had removal of a callus by a scanning coordinator 5 days ago. Yesterday he removed the dressing and noticed some brown discoloration at the procedure site. He was concerned about infection which is why he is here today. He did not try to contact his scanning coordinator. He denies any fevers or chills. He has diabetic neuropathy and denies any pain. ROS All systems reviewed and are negative except as per history of present illness. Medications Home Meds Reported Medications Omeprazole* (Omeprazole*) 40 Mg Capsule.dr, 40 MG PO AC BREAKFAST BEDTIME, #30 CAP 01/23/19 Insulin Glargine,Hum.rec.anlog (Basaglar Kwikpen U-100) 100 Unit/1 Ml Insuln.pen, 25 UNITS SC DAILY, EA 01/23/19 Amlodipine Besylate* (Norvasc*) 5 Mg Tablet, 5 MG PO DAILY, TAB 01/23/19 Magnesium Oxide* (Mag-Oxide*) 400 Mg Tablet, 250 MG PO DAILY, TAB 01/23/19 Hydrochlorothiazide* (Hydrochlorothiazide*) 12.5 Mg Tablet, 12.5 MG PO DAILY, # 30 TAB 01/23/19 Gabapentin* (Gabapentin*) 300 Mg Capsule, 300 MG PO QHS, #60 CAP 01/23/19 Lisinopril* (Lisinopril*) 40 Mg Tablet, 40 MG PO DAILY, #30 TAB 01/23/19 Insulin Glargine* (Lantus*) 100 Unit/Ml Soln, 30 UNIT SC QPM, #1 VIAL 01/23/19 Metformin* (Glucophage*) 1,000 Mg Tablet, 1000 MG PO BID, #60 TAB 01/23/19 Allergies Allergies: Coded Allergies: No Known Drug Allergies (Verified Allergy, Unknown, 12/13/18) PMhx/Soc History of Surgery: Yes (Rt Femur ) Anesthesia Reaction: No Hx Neurological Disorder: No Hx Respiratory Disorders: No Hx Cardiac Disorders: Yes (HTN) Hx Psychiatric Problems: No Hx Miscellaneous Medical Probl: Yes (DM) Hx Alcohol Use: No Hx Substance Use: No Hx Tobacco Use: No Smoking Status: Never smoker FmHx Family History: diabetes Physical Exam Vitals Vital Signs Date p Pulse Resp B/P (MAP) Pulse Ox O2 O2 Flow FiO2 Time Delivery Rate 03/03/19 73 16 193/90 98 Room Air 18:46 (124) 03/03/19 97.5 76 18 160/76 97 14:38 (104) Physical Exam Const: No acute distress Head: Atraumatic Resp: Clear to auscultation bilaterally Cardio: Regular rate and rhythm, no murmurs Skin: No petechiae or rashes Ext: No cyanosis, or edema. Right foot pinky toe with wound noted on lateral aspect with brown surrounding discoloration, dry, no drainage, no fluctuance or induration. No surrounding erythema. The rest of the foot looks normal with no other wounds. 2+ DP and PT pulses bilaterally. Left foot without any wounds. Neur: Awake and alert Psych: Normal Mood and Affect Procedures/MDM Patient is presenting for wound check of his postprocedure site on right pinky toe. There is no evidence of infection. The brown discolorations likely dried Betadine from the procedure versus dried blood, but more consistent with Betadine. No evidence of ischemic limb. Patient is stable for discharge with continued outpatient follow-up. I explained return precautions to him and recommended follow-up with his scanning coordinator as scheduled. Patient's blood pressure was elevated (>120/80) but appears stable without evidence of hypertension emergency or urgency. The patient was counseled about the risks of hypertension and urged to pursue outpatient monitoring and therapy within a week with their primary care physician. Departure Diagnosis: Primary Impression: Encounter for postoperative wound check Condition: Stable EKJASPER ANTONIO MD Mar 03, 2019 19:45
[2019-03-03 19:55] VITALS: BP 154/78; PULSE 71; RESP 17
== END 2019-03-03 19:55 | disposition home or self-care (01) ==
LOC: E/R 14:26
DX: Z48.01 Encounter for change or removal of surgical wound dressing (principal); I10 Essential (primary) hypertension; E11.9 Type 2 diabetes mellitus without complications; Z79.4 Long term (current) use of insulin
CPT/HCPCS: 99281

== ENCOUNTER 2019-05-21 18:51 | Emergency (ER) | payer OTHER ==
[~2019-05-21] VITALS: Ht 160 cm; Wt 64.5 kg
[2019-05-21 18:55] VITALS: Ht 160 cm; Wt 64.5 kg
--- NOTE | 2019-05-21 21:47 | ERD ---
ER Documentation Chief Complaint Chief Complaint blood in urine since 1P today; no blood thinners HPI This is a 63-year-old man presenting with one episode of hematuria occurring this morning, he states after the episode the urine did clear up and now his urine is light pink. He denies fevers or chills, no back or flank pain, no penile discharge, no weight loss, no complaints of chest pain or shortness of breath. ROS All systems reviewed and are negative except as per history of present illness. Medications Home Meds Reported Medications Omeprazole* (Omeprazole*) 40 Mg Capsule.dr, 40 MG PO AC BREAKFAST BEDTIME, #30 CAP 01/23/19 Insulin Glargine,Hum.rec.anlog (Basaglar Kwikpen U-100) 100 Unit/1 Ml Insuln.pen, 25 UNITS SC DAILY, EA 01/23/19 Amlodipine Besylate* (Norvasc*) 5 Mg Tablet, 5 MG PO DAILY, TAB 01/23/19 Magnesium Oxide* (Mag-Oxide*) 400 Mg Tablet, 250 MG PO DAILY, TAB 01/23/19 Hydrochlorothiazide* (Hydrochlorothiazide*) 12.5 Mg Tablet, 12.5 MG PO DAILY, #30 TAB 01/23/19 Gabapentin* (Gabapentin*) 300 Mg Capsule, 300 MG PO QHS, #60 CAP 01/23/19 Lisinopril* (Lisinopril*) 40 Mg Tablet, 40 MG PO DAILY, #30 TAB 01/23/19 Insulin Glargine* (Lantus*) 100 Unit/Ml Soln, 30 UNIT SC QPM, #1 VIAL 01/23/19 Metformin* (Glucophage*) 1,000 Mg Tablet, 1000 MG PO BID, #60 TAB 01/23/19 Allergies Allergies: Coded Allergies: No Known Drug Allergies (Verified Allergy, Unknown, 12/13/18) PMhx/Soc Diabetes mellitus, hypertension Medical and Surgical Hx: pt denies Medical Hx, pt denies Surgical Hx History of Surgery: Yes (Rt Femur ) Anesthesia Reaction: No Hx Neurological Disorder: No Hx Respiratory Disorders: No Hx Cardiac Disorders: Yes (HTN) Hx Psychiatric Problems: No Hx Miscellaneous Medical Probl: Yes (DM) Hx Alcohol Use: No Hx Substance Use: No Hx Tobacco Use: No Smoking Status: Never smoker FmHx Family History: No diabetes Physical Exam Vitals Vital Signs Date Temp Pulse Resp B/P (MAP) Pulse Ox O2 O2 Flow FiO2 Time Delivery Rate 05/21/19 98.2 77 16 196/85 99 18:55 (122) Physical Exam GENERAL: Well-developed, well-nourished, well-hydrated, in no apparent distress, looks nontoxic in appearance CARDIAC: Regular rate and rhythm, no murmurs rubs or gallops LUNGS: Clear bilaterally no wheezing crackles or stridor ABDOMEN: Soft nontender, no guarding, no rigidity, no rebound, no psoas sign no obturator sign. Normoactive bowel sounds SKIN: Warm and dry to touch, no abrasions, contusions, or hematomas, no lacerations, no ecchymosis, no target lesions, and without ulcers EXTREMITIES: No clubbing cyanosis or edema, calves are bilaterally symmetrical, no Homans sign, no popliteal cord sign. Distal pulses equal and bilateral PSYCH: Normal affect without agitation or irritability Results 24 hrs Laboratory Tests Test 05/21/19 20:35 Urine Color STRAW Urine Clarity CLEAR Urine pH 7.0 Urine Specific [place] 1.009 Urine Ketones NEGATIVE mg/dL Urine Nitrite NEGATIVE mg/dL Urine Bilirubin NEGATIVE mg/dL Urine Urobilinogen NEGATIVE mg/dL Urine Leukocyte Esterase NEGATIVE Cherelle/ul Urine Microscopic RBC 0 /HPF Urine Microscopic WBC 0 /HPF Urine Hemoglobin NEGATIVE mg/dL Urine Glucose NEGATIVE mg/dL Urine Total Protein 1+ mg/dl Bedside Glucose 146 mg/dL Procedures/MDM Blood sugar was checked and was within normal limits, urine analysis was unremarkable, no RBCs and no signs of infection. Patient had a normal exam and no complaints of pain, he will be discharged to follow-up with PMD for hematuria and possible BPH. Patient feels much better at this time, and vital signs are normal, symptoms have improved. I did give strict instructions to return to the ED if symptoms continue or worsen, patient will otherwise follow-up with primary care physician. Patient understood instructions and agreed to plan. Disclaimer: Inadvertent spelling and grammatical errors are likely due to EHR/dictation software use and do not reflect on the overall quality of patient care. Also, please note that the electronic time recorded on this note does not necessarily reflect the actual time of the patient encounter. Departure Diagnosis: Primary Impression: Hematuria Hematuria type: unspecified type Qualified Codes: R31.9 - Hematuria, unspecified Condition: Good Patient Instructions: Hematuria Additional Instructions: FOLLOW UP WITH YOUR PRIMARY PHYSICIAN FOR REPEAT UA AND EVALUATION OF HEMATURIA SUDHAKAR ARIAS MD May 21, 2019 21:47
[2019-05-21 22:18] VITALS: BP 137/86; PULSE 63; RESP 21
== END 2019-05-21 22:20 | disposition home or self-care (01) ==
LOC: E/R 18:51
DX: R31.9 Hematuria, unspecified (principal); I10 Essential (primary) hypertension; E11.9 Type 2 diabetes mellitus without complications; Z79.4 Long term (current) use of insulin
CPT/HCPCS: 81001; 82962; 87086; Z7502; 99283